=== PATIENT | female | born 1955 | race Caucasian/White ===

== ENCOUNTER 2020-02-13 14:54 | Emergency (ER) | payer OTHER ==
[~2020-02-13] VITALS: Ht 170.2 cm; Wt 86.2 kg
[~2020-02-13 14:54] MED LIST: ACET325 PO; ALBU90OI INH; ASPI325 PO; ASPI81CH PO; ATOR80 PO; Aspir 8181 MG PO; Aspirin EC81 MG PO; BACL20 PO; BASAGLAR K100 UNIT/3 SC; BELSOMRA20 MG PO; BENZ100A PO; BISA10S PR; BUSP10 PO; BUSP15 PO; BUTALB-ACETAMI1 EAC5 PO; Baclofen20 MG PO; CARI350 PO; CENTRUM MULTIV1 EACH; CHOL10002; CLON.2 PO; CVS DISPOSABLE399 ML PR; Cipro500 MG PO; Coq-10100 MG PO; DIPATR PO; DOCU100 PO; DULO30 PO; DULO60 PO; ERGO50000 PO; ESCI20 PO; FLUTICASONE-SA1 EAC2 INH; Flagyl500 MG PO; GABA100 PO; GABA300 PO; GABA800 PO; HYDHCL25 PO; INS70/30PN SC; INSULANPEN SC; Keppra750 MG PO; LEVEMIR FL100 UNIT/1 SC; METH10 PO; METO100ER PO; METO50ER PO; MIDO5 PO; MILN100T PO; Macrobid 100 M100 MG PO; Metoprolol Succ25 MG PO; Milk Of Ma800 MG/5 M PO; NICO21TP TOP; NITR.4SL SL; NYST100P TOP; Norco 5-325 Ta1 EACH PO; Novolog Fl100 UNIT/1 SC; OMEP20ER PO; ONDA4ODT PO; OXYC1TAB11 PO; OXYC5 PO; PARO20 PO; PARO30 PO; POTCHL20ER PO; PRAHYD1AE TOP; PRAV20 PO; PRAVASTATIN SOD10 MG PO; PROC10 PO; PROM25 PO; QUETIAPINE FUM150 MG PO; RANI150 PO; RIZATRIPTAN5 MG PO; SEEBRI NEOHA15.6 MC1 INH; SENN187 PO; SYMBICORT 80-10.2 GM INH; TOPI25 PO; TORSE20 PO; VENL75ER PO; ZOLP10 PO; ZONI100 PO; [UNRECOGNIZED DRUG - OTHER] PO; nuvigil PO
== END 2020-02-13 17:40 | disposition home or self-care (01) ==
LOC: ER 14:54
DX: T14.8XXA Other injury of unspecified body region, initial encounter (principal); M54.2 Cervicalgia; M25.551 Pain in right hip; M25.552 Pain in left hip; M25.562 Pain in left knee; Z88.8 Allergy status to other drugs, medicaments and biological substances; Z91.013 Allergy to seafood; Z79.899 Other long term (current) drug therapy; Z79.4 Long term (current) use of insulin; I10 Essential (primary) hypertension; E78.5 Hyperlipidemia, unspecified; I25.10 Atherosclerotic heart disease of native coronary artery without angina pectoris; J44.9 Chronic obstructive pulmonary disease, unspecified; Z86.73 Personal history of transient ischemic attack (TIA), and cerebral infarction without residual deficits; E11.9 Type 2 diabetes mellitus without complications; F17.200 Nicotine dependence, unspecified, uncomplicated; V87.8XXA Person injured in other specified noncollision transport accidents involving motor vehicle (traffic), initial encounter
CPT/HCPCS: 72040; 72100; 73070; 73562-LT; 73620; 99284-25

== ENCOUNTER → 2020-03-12 | Outpatient (CLI) | payer OTHER ==
[2020-03-12 18:34] LABS: Protein, Urine Quantitative 11.9 mg/dL (0.0-11.9)
[2020-03-12 18:53] LABS: Microalbumin, Urine Quant. <5.000 mg/L (0.000-20.000)
== END | disposition home or self-care (01) ==
LOC: LAB EV 14:00 → LAB SHORT 14:00
PROVIDERS: Internal Medicine Nephrology
DX: N18.3 Chronic kidney disease, stage 3 (moderate) (principal); D63.1 Anemia in chronic kidney disease; D75.1 Secondary polycythemia; N25.81 Secondary hyperparathyroidism of renal origin; E55.9 Vitamin D deficiency, unspecified; E78.00 Pure hypercholesterolemia, unspecified; D51.8 Other vitamin B12 deficiency anemias; D52.8 Other folate deficiency anemias; D50.9 Iron deficiency anemia, unspecified; R76.9 Abnormal immunological finding in serum, unspecified; R94.5 Abnormal results of liver function studies; R94.6 Abnormal results of thyroid function studies
CPT/HCPCS: 81050; 82043; 82570; 84156

== ENCOUNTER 2020-10-24 12:31 | Emergency (ER) | payer OTHER ==
[~2020-10-24] VITALS: Ht 170.2 cm; Wt 65.8 kg
[2020-10-24 14:21] LABS: BASOPHILS ABSOLUTE AUTO 0.04 K/mm3 (0.00-0.23); BASOPHILS PERCENT AUTO 1 % (0-2); EOSINOPHILS PERCENT AUTO 1 % (0-6); Hematocrit 40.2 % (33.0-51.0); Hemoglobin 13.7 g/dL (11.5-16.0); IMMATURE GRAN ABSOLUTE AUTO 0.06 K/mm3 (0.00-0.10); IMMATURE GRAN PERCENT AUTO 1 % (0-1); LYMPHOCYTES ABSOLUTE AUTO 1.89 K/mm3 (0.84-5.20); LYMPHOCYTES PERCENT AUTO 25 % (21-46); MONOCYTES ABSOLUTE AUTO 0.32 K/mm3 (0.16-1.47); MONOCYTES PERCENT AUTO 4 % (4-13); Mean Corpuscular HGB 34.4 pg (26.0-34.0); Mean Corpuscular HGB Conc 34.1 g/dL (31.5-36.5); Mean Corpuscular Volume 101 fL (80-100); Mean Platelet Volume 11.9 fL (9.1-12.4); NEUTROPHILS ABSOLUTE AUTO 5.17 K/mm3 (1.96-9.15); NEUTROPHILS PERCENT AUTO 68 % (41-73); Platelet Count 218 K/mm3 (150-400); RDW Coefficient Variation 12.4 % (11.7-14.2); RDW Standard Deviation 45.7 fL (35.1-46.3); Red Blood Cell Count 3.98 M/mm3 (3.80-5.20); White Blood Cell Count 7.58 K/mm3 (4.00-11.30)
[2020-10-24 14:34] LABS: International Normalized Ratio 0.96; Prothrombin Time Results 10.3 Sec (9.7-11.5)
[2020-10-24 14:52] LABS: Alanine Aminotransfer (ALT/SGP 21 U/L (12-78); Albumin, Blood 3.5 g/dL (3.4-5.0); Albumin/Globulin Ratio 0.8 (0.8-1.8); Alk Phos 120 U/L (50-136); Anion Gap 7 mmol/L (6-16); Aspartate Aminotrans (AST/SGOT 10 U/L (12-37); Bilirubin, Total 0.3 mg/dL (0.1-1.0); Blood Urea Nitrogen 13 mg/dL (8-24); Bun/Creatinine Ratio 14.3 (12.0-20.0); CO2, Blood 21 mmol/L (21-32); Chloride, Blood 106 mmol/L (98-108); Creatinine, Blood 0.91 mg/dL (0.40-1.00); Globulin, Blood 4.6 g/dL (2.2-4.0); Glomerular Filtration Rate >60 (60-); Glucose, Blood 338 mg/dL (70-99); Potassium, Blood 4.3 mmol/L (3.5-5.5); Sodium, Blood 134 mmol/L (136-145); Total Protein, Blood 8.1 g/dL (6.4-8.2)
[2020-10-24] MEDS ORDERED: FLOVENT HFA12 GM INH (16:57)
== END 2020-10-24 19:21 | disposition home or self-care (01) ==
LOC: ER 12:31
PROVIDERS: Physician Assistant
DX: R89.5 Abnormal microbiological findings in specimens from other organs, systems and tissues (principal); I10 Essential (primary) hypertension; E78.5 Hyperlipidemia, unspecified; I25.10 Atherosclerotic heart disease of native coronary artery without angina pectoris; I25.2 Old myocardial infarction; F17.200 Nicotine dependence, unspecified, uncomplicated; Z86.16 Personal history of COVID-19; Z88.5 Allergy status to narcotic agent; Z91.013 Allergy to seafood; Z88.8 Allergy status to other drugs, medicaments and biological substances; Z86.73 Personal history of transient ischemic attack (TIA), and cerebral infarction without residual deficits
CPT/HCPCS: 36415; 71045; 74177; 80053; 83605; 85025; 85610; 87040; 93005; 93010; 96374-59; 99284-25; A9270; J1200; J7030; Q9967

== ENCOUNTER → 2021-07-08 | Outpatient (CLI) | payer OTHER ==
[~2021-07-08] MED LIST changes: +FLOVENT HFA12 GM INH
[2021-07-08 13:39] LABS: Alanine Aminotransfer (ALT/SGP 15 U/L (12-78); Albumin, Blood 3.6 g/dL (3.4-5.0); Albumin/Globulin Ratio 0.7 (0.8-1.8); Alk Phos 123 U/L (50-136); Anion Gap 8 mmol/L (6-16); Aspartate Aminotrans (AST/SGOT 9 U/L (12-37); Bilirubin, Direct <0.1 mg/dL (0.0-0.3); Bilirubin, Indirect Unable to Calculate mg/dL (0.1-0.7); Bilirubin, Total 0.3 mg/dL (0.1-1.0); Blood Urea Nitrogen 10 mg/dL (8-24); Bun/Creatinine Ratio 11.6 (12.0-20.0); CO2, Blood 22 mmol/L (21-32); Calcium, Blood 9.4 mg/dL (8.5-10.1); Chloride, Blood 104 mmol/L (98-108); Cholesterol 285 mg/dL (50-200); Creatinine, Blood 0.86 mg/dL (0.40-1.00); Free Thyroxine 0.83 ng/dL (0.70-1.60); Globulin, Blood 4.9 g/dL (2.2-4.0); Glomerular Filtration Rate >60 (60-); Glucose, Blood 237 mg/dL (70-99); HDL Cholesterol 41 mg/dL (>39); LDL/HDL RATIO 4.4; Low Density Lipoprotein Chol 180 mg/dL (0-110); Phosphorus, Blood 3.1 mg/dL (2.5-4.9); Potassium, Blood 4.5 mmol/L (3.5-5.5); Sodium, Blood 134 mmol/L (136-145); Total Protein, Blood 8.5 g/dL (6.4-8.2); Triglycerides 321 mg/dL (30-160); Very Low Density Lipoprot Chol 64 mg/dL (6-32)
== END | disposition home or self-care (01) ==
LOC: LAB SHORT 11:00 → LAB FUT 07-06 09:05 → EDSTATUS 07-06 09:05
PROVIDERS: Nurse Practitioner Family
DX: I13.0 Hypertensive heart and chronic kidney disease with heart failure and stage 1 through stage 4 chronic kidney disease, or unspecified chronic kidney disease (principal); E11.21 Type 2 diabetes mellitus with diabetic nephropathy; E11.22 Type 2 diabetes mellitus with diabetic chronic kidney disease; N18.4 Chronic kidney disease, stage 4 (severe); E78.5 Hyperlipidemia, unspecified
CPT/HCPCS: 80053; 80061; 82248; 84100; 84439; 84443

== ENCOUNTER → 2021-10-21 | Outpatient (CLI) | payer OTHER | END | disposition home or self-care (01) | LOC: LAB 10:45 → LAB SHORT 10:45 | DX: N89.8 Other specified noninflammatory disorders of vagina (principal) | CPT/HCPCS: 87070; 87205 ==

== ENCOUNTER → 2022-03-29 | Outpatient (CLI) | payer OTHER | END | disposition home or self-care (01) | LOC: LAB SHORT 17:50 → LAB 17:50 | DX: N39.0 Urinary tract infection, site not specified (principal) | CPT/HCPCS: 87077; 87086; 87186 ==

== ENCOUNTER → 2022-05-17 | Outpatient (CLI) | payer OTHER ==
[2022-05-18 10:15] LABS: Candida species (DNA Probe) Negative (NEGATIVE); G. vaginalis (DNA Probe) Negative (NEGATIVE); T. vaginalis (DNA Probe) Positive (NEGATIVE)
[2022-05-19 04:10] LABS: CHLAMYDIA TRACHOMATIS, NAA Negative (Negative)
== END ==
LOC: LAB 14:13 → LAB SHORT 14:13
PROVIDERS: Family Medicine
DX: N76.0 Acute vaginitis (principal)
CPT/HCPCS: 87480; 87491; 87510; 87591; 87660

== ENCOUNTER 2022-06-28 12:56 | Inpatient (IN) | payer OTHER, MEDICARE ==
[~2022-06-28] VITALS: Ht 170.2 cm; Wt 70.7 kg
[2022-06-28 15:05] LABS: BASOPHILS ABSOLUTE AUTO 0.09 K/mm3 (0.00-0.23); BASOPHILS PERCENT AUTO 1 % (0-2); EOSINOPHILS ABSOLUTE AUTO 0.09 K/mm3 (0.00-0.68); EOSINOPHILS PERCENT AUTO 1 % (0-6); Hematocrit 44.9 % (33.0-51.0); Hemoglobin 14.8 g/dL (11.5-16.0); IMMATURE GRAN ABSOLUTE AUTO 0.25 K/mm3 (0.00-0.10); IMMATURE GRAN PERCENT AUTO 2 % (0-1); LYMPHOCYTES ABSOLUTE AUTO 0.47 K/mm3 (0.84-5.20); LYMPHOCYTES PERCENT AUTO 4 % (21-46); MONOCYTES ABSOLUTE AUTO 0.59 K/mm3 (0.16-1.47); MONOCYTES PERCENT AUTO 5 % (4-13); Mean Corpuscular HGB 33.3 pg (26.0-34.0); Mean Corpuscular Volume 101 fL (80-100); Mean Platelet Volume 12.6 fL (9.1-12.4); NEUTROPHILS ABSOLUTE AUTO 9.48 K/mm3 (1.96-9.15); NEUTROPHILS PERCENT AUTO 86 % (41-73); NRBC ABSOLUTE 0.03 K/mm3 (0.00-0.02); NRBC Auto 0.3 /100 WBC (0.0-0.2); Platelet Count 110 K/mm3 (150-400); RDW Coefficient Variation 14.1 % (11.7-14.2); RDW Standard Deviation 52.7 fL (35.1-46.3); Red Blood Cell Count 4.44 M/mm3 (3.80-5.20); White Blood Cell Count 10.97 K/mm3 (4.00-11.30)
[2022-06-28 15:21] LABS: Base Excess Venous -22.1 mmol/L; Bicarbonate Venous 10.1 mmol/L (24.0-30.0); PCO2 Venous 25.7 mmHg (38-42)
[2022-06-28 15:23] LABS: pH Blood Venous 7.09 (7.34-7.37)
[2022-06-28 15:30] LABS: Beta-hydroxybutyrate 13.2 mg/dL (0.2-2.8); CPK Creatine Kinase 155 U/L (26-193); Ethanol (Alcohol), Blood, Med <3 mg/dL; Magnesium, Blood 3.3 mg/dL (1.6-2.4)
[2022-06-28 15:36] LABS: Alanine Aminotransfer (ALT/SGP 82 U/L (12-78); Albumin/Globulin Ratio 0.3 (0.8-1.8); Alk Phos 138 U/L (50-136); Anion Gap 27 mmol/L (6-16); Aspartate Aminotrans (AST/SGOT 164 U/L (12-37); Blood Urea Nitrogen 77 mg/dL (8-24); Bun/Creatinine Ratio 25.6 (12.0-20.0); CO2, Blood 10 mmol/L (21-32); Calcium, Blood 9.5 mg/dL (8.5-10.1); Chloride, Blood 93 mmol/L (98-108); Creatinine, Blood 3.01 mg/dL (0.40-1.00); Globulin, Blood 6.6 g/dL (2.2-4.0); Glomerular Filtration Rate 17 (60-); Glucose, Blood 713 mg/dL (70-99); Potassium, Blood 5.5 mmol/L (3.5-5.5); Sodium, Blood 130 mmol/L (136-145); Total Protein, Blood 8.6 g/dL (6.4-8.2)
[2022-06-28 15:55] LABS: Influenza A, PCR NEGATIVE (NEGATIVE); Influenza B, PCR NEGATIVE (NEGATIVE); Resp Syncytial Virus, PCR NEGATIVE (NEGATIVE); SARS-Cov-2 (COVID-19) PCR, MMC NEGATIVE (NEGATIVE)
[2022-06-28 16:10] LABS: Source, Urine Foley catheter
[2022-06-28 16:14] LABS: Appearance, Urine Cloudy (Clear); Bilirubin, Urine Neg (Neg); Blood, Urine 5+ (Neg); Color, Urine Yellow (P-Yellow); Glucose Qualitative, Urine 4+ (Neg); Ketones, Urine Neg (Neg); Leukocyte Esterase, Urine 2+ (Neg); Nitrite, Urine Neg (Neg); Protein, Urine 3+ (Neg); Specific Gravity, Urine 1.015 (1.003-1.022); Urobilinogen, Urine NORM (Normal)
[2022-06-28 16:30] LABS: U Amphetamine Screen Not Detected; U Barbituate Screen DETECTED; U Benzodiazapine Screen Not Detected; U Buprenorphine Screen Not Detected; U Cannabinoids Screen DETECTED; U Cocaine Screen Not Detected; U Methadone Screen Not Detected; U Methamphetamine Screen Not Detected; U Opiates Screen Not Detected; U Oxycodone Screen Not Detected; U Phencyclidine Screen Not Detected; U Propoxyphene Screen Not Detected
[2022-06-28 16:38] LABS: Bacteria Many /hpf; Renal Epithelial Mod /hpf (0-Rare); Squamous Epithelial Cells Mod /hpf (Few)
[2022-06-28 17:41] LABS: Glucose, Blood 592 mg/dL (70-99)
[2022-06-28 19:44] LABS: Bun/Creatinine Ratio 32.9 (12.0-20.0); Calcium, Blood 8.2 mg/dL (8.5-10.1); Creatinine, Blood 2.52 mg/dL (0.40-1.00); Phosphorus, Blood 2.7 mg/dL (2.5-4.9); Potassium, Blood 4.5 mmol/L (3.5-5.5)
[2022-06-28 20:10] LABS: PCO2 Venous 33.9 mmHg (38-42); pH Blood Venous 7.22 (7.34-7.37)
[2022-06-28 20:11] LABS: Base Excess Venous -13.8 mmol/L; Bicarbonate Venous 14.4 mmol/L (24.0-30.0)
--- NOTE | 2022-06-28 21:07 | NUR ---
PATIENT ARRIVED TO ICU 12 VIA GURNEY. OPENS EYES AND MOANING, NOT FOLLOWING DIRECTIONS, NO MOVEMENT SEEN IN EXTREMITIES, HOLDING BODY AND EXTREMITIES VERY STIFF. PATIENTS EYES ROVING BACK AND FORTH WILL LOOK AT THIS RN WITH NOXIOUS STIMULI, THE BACK TO GOING BACK AND FORTH, PUPILS EQUIL BUT SLUGGISH. EXTREMITIES MOTTLED AND COOL TO TOUCH. ANDERSON TEMP PROBE IN PLACE WITH TEMP 104.1. INSULIN DRIP AT 3.3 UNITS INFUSING. NS WITH KCL INFUSING FROM ED. PATIENT TRANSFERRED TO BED USING SLIDER SHEET AND PLACED ON ICU MONITORS.
[2022-06-28 21:52] LABS: Bicarbonate Venous 12.9 mmol/L (24.0-30.0); PCO2 Venous 31.9 mmHg (38-42); pH Blood Venous 7.19 (7.34-7.37)
--- NOTE | 2022-06-28 22:15 | NUR ---
DOCTOR CARLI GIVEN UPDATE AND INFORMED OF REPEAT LABS. SEE NEW ORDERS.
[2022-06-28 22:20] LABS: Bun/Creatinine Ratio 31.9 (12.0-20.0); Calcium, Blood 8.1 mg/dL (8.5-10.1); Creatinine, Blood 2.54 mg/dL (0.40-1.00); Potassium, Blood 5.4 mmol/L (3.5-5.5)
[2022-06-29 01:00] LABS: Base Excess Venous -17.5 mmol/L; Bicarbonate Venous 12.3 mmol/L (24.0-30.0); PCO2 Venous 28.6 mmHg (38-42); pH Blood Venous 7.18 (7.34-7.37)
--- NOTE | 2022-06-29 01:18 | NUR ---
PATIENT BIOX 89-90% ON RA, ATTEMPT TO DEEP ORAL SUCTION WITH NO RESULTS. PATIENT HAS GOOD GAG. LUNG SOUNDS WITH COARSE WHEEZES UPPER AND DECREASED BASES. OXYGEN PLACED 2L/NC WITH BIOX UP TO 94%
[2022-06-29 02:02] LABS: Bun/Creatinine Ratio 34.1 (12.0-20.0); Calcium, Blood 7.3 mg/dL (8.5-10.1); Creatinine, Blood 2.46 mg/dL (0.40-1.00); Potassium, Blood 5.1 mmol/L (3.5-5.5)
--- NOTE | 2022-06-29 03:00 | NUR ---
PATIENT AWAKE AND YELLING OUT, NOT ANSWERING QUESTIONS OR FOLLOWING DIRECTIONS. APPEARS TO MAKE EYE CONTACT. PATIENT DIAPHORETIC FEVER DOWN TO 101. DIFFICULTY OBTAINING BP DUE TO PATIENT TENSING ARM WITH EACH BP.
[2022-06-29 06:40] LABS: Bun/Creatinine Ratio 34.3 (12.0-20.0); Calcium, Blood 7.9 mg/dL (8.5-10.1); Creatinine, Blood 2.54 mg/dL (0.40-1.00); Magnesium, Blood 2.5 mg/dL (1.6-2.4); Phosphorus, Blood 3.9 mg/dL (2.5-4.9); Potassium, Blood 5.2 mmol/L (3.5-5.5)
--- NOTE | 2022-06-29 07:00 | NUR ---
SUMMARY PATIENT CONTINUES TO BE NONVERBAL, MOANING FREQUENTLY, LOUDER WITH STIMULI. WILL HOLD EYE CONTACT AT TIMES, BUT NOT CONSISTENT. CLOSES MOUTH TIGHT DURING ORAL CARE. ONLY SLIGHT MOVEMENT SEEN IN HANDS. NOT FOLLOWING DIRECTIONS. INSULIN DRIP CONTINUES NOW 3 UNITS/HR. D5 1/2 NS @ 200 CC/HR CONTINUES. PATIENT CONTINUES TO BE MOTTLED WITH COLD EXTREMITIES DESPITE TEMP UP TO 102 AGAIN, VIA ANDERSON TEMP PROBE. FREQUENT ORAL CARE DONE REMOVING BLACK ORAL SECRETIONS OFF TONGUE. GOOD GAG WITH DEEP ORAL SUCTION AFTER MOIST COUGH. PATIENT CONTINUES TO HAVE WHEEZES T/O ORDER OBTAINED FOR UDN TX PER RT PROTOCOL.
[2022-06-29] MEDS ORDERED: MODA200 PO (07:54)
[2022-06-29] MEDS ORDERED: TRAM50 PO (07:55)
[2022-06-29] MEDS ORDERED: GUAI600T33 PO (07:59)
[2022-06-29] MEDS ORDERED: Tessalon200 MG (07:59)
[2022-06-29 09:04] LABS: Hematocrit 33.4 % (33.0-51.0); Hemoglobin 11.2 g/dL (11.5-16.0); Mean Corpuscular HGB 33.7 pg (26.0-34.0); Mean Corpuscular HGB Conc 33.5 g/dL (31.5-36.5); Mean Corpuscular Volume 101 fL (80-100); Mean Platelet Volume 12.2 fL (9.1-12.4); NRBC ABSOLUTE 0.02 K/mm3 (0.00-0.02); NRBC Auto 0.2 /100 WBC (0.0-0.2); Platelet Count 76 K/mm3 (150-400); RDW Coefficient Variation 14.6 % (11.7-14.2); RDW Standard Deviation 54.4 fL (35.1-46.3); Red Blood Cell Count 3.32 M/mm3 (3.80-5.20)
[2022-06-29 09:19] LABS: Vancomycin, Random 28.9 ug/mL
[2022-06-29 10:18] LABS: Magnesium, Blood 2.3 mg/dL (1.6-2.4); Potassium, Blood 4.8 mmol/L (3.5-5.5)
[2022-06-29 10:27] LABS: BAND PERCENT MAN 1 % (0-8); BASOPHILS PERCENT MAN 0 % (0-2); EOSINOPHILS PERCENT MAN 0 % (0-6); LYMPHOCYTES % ATYPICAL MANUAL 1 % (0-0); LYMPHOCYTES ABSOLUTE MAN 1.23 K/mm3 (0.84-5.20); LYMPHOCYTES PERCENT MAN 12 % (21-46); MONOCYTES ABSOLUTE MAN 0.85 K/mm3 (0.16-1.47); MONOCYTES PERCENT MAN 9 % (4-13); NEUTROPHILS ABSOLUTE MAN 7.41 K/mm3 (1.96-9.15); SEG NEUTROPHILS PERCENT MAN 77 % (41-73); TOTAL CELLS COUNTED 100
[2022-06-29 11:16] LABS: PCO2 Arterial 28.4 mmHg (35-45); PO2 Arterial 119 mmHg (80-100); pH Blood Arterial 7.21 (7.35-7.45)
[2022-06-29 12:14] LABS: Bun/Creatinine Ratio 31.9 (12.0-20.0); Calcium, Blood 8.8 mg/dL (8.5-10.1); Creatinine, Blood 2.63 mg/dL (0.40-1.00); Potassium, Blood 5.1 mmol/L (3.5-5.5)
--- NOTE | 2022-06-29 13:58 | NUR ---
0700 ASSUMED CARE: PATIENT IS TACHYPNIC ISN THE 30'S SHE IS MODDLED THIGHS TO TOES. PREVIOUS NURSE STATED HER MODDLING WAS WORSE EARLIER ON HER SHIFT. SHE HAS VERY COOL EXTREMETIES AND TEMP ANDERSON IN PLACE SHOWING A CORE TEMPERATURE OF 102.2 F. SHE IS ON 2L NC WITH A SAO2 OF 93%. SHE IS ON D51/2N AT 200ML HR AND INSULIN DRIP GOING AT 3 UNIT /HR . SHE IS NOT RESPONSIVE TO VERBAL STIMULI OR PAINFUL STIMULI. SHE HAS ROVING EYES BACK AND FORTH AND WILL NOT FOCUS IS ON STAFF UNLESS EYES ARE HELD OPEN AND STAFF IS SPEAKING LOUDLY AT PATIENT BUT SHE DOES NOT HOLD GAZE VERY LONG. PUPILS EQUAL REACTIVE TO LIGHT BUT SLUGGISH AND SIZE IS 5 BILATERALLY. SHE HAS 3 PIV'S LEFT WRIST/ RIGHT LOWER FA AND LEFT BREAST. 0800: PLACED A POWERGLIDE TO PATIENTS RIGHT UPPER ARM. STARTED LEVOPHED AFTERWARD FOR A LOW BP 60/40'S. IT IS GOING INTO LEFT PIV. 0930: PATIENT HAD A RUN OF VTACH PER CHARGE NURSE. 1 AMP OF CALCIUM GLUCONATE GIVEN BY MARCOS COORDINATOR. DR MIRAMONTES PRESENT AT BEDSIDE, ZOLL PLACED TO CHEST/BACK. DR MIRAMONTES AGREED PATIENT UNABLE TO MAINTAIN A SAFE AIRWAY SHE IS VERY COURSE T/O AND SOUNDS VERY WET. SHE INTUBATED THE PATIENT WITH 2 RT'S AT BEDSIDE. PATIENT RECIEVED AN OG / CLAMPED IT. LEVOPHED TITRATED UP FOR LOW BP. 1000: PICC LINE PLACED OVERWIRE FROM POWERGLIDE THAT WAS PLACED EARLIER. CHEST X-RAY TO CONFIRM PICC AND ETT AND OG PLACEMENT. PATIENT NOT RESPONSIVE TO ANY PAINFUL STIMULI TO ANY OF HER 4 EXTREMETIES. LOTS OF THICK CREAMY SECRETIONS FROM ETT AND SAMPLE SENT FOR CULTURES. BLOOD CULTURES X2 CAME BACK POSITIVE FOR GRAM - RODS. DR MIRAMONTES AWARE. GOT CASE MANAGEMENT TO REACH OUT TO "CAREGIVER" LETA. NO NEXT OF KIN AVAILABLE. 1100: INSULIN DRIP UP TO 4 UNIT GLUCOSE INCREASING. D5 1/2 AT 75 /HR AND BICARB DRIP THAT WAS STARTED S/P LAST ABG. ECHO TO BE DONE. WILL CONTINUE CARE.
--- NOTE | 2022-06-29 14:19 | NUR ---
LANDLORD/FRIEND: Patient itubated and unable to speak for herself at this time. Patient's friend/landlord (Eulalia Vinson [phone]) came to unit to visit patient. Eulalia expressed concerns for "Kenny" (roommate/caregiver) making decision's for patient as he has "mental health issues". Eulalia also explained that the patient has no legal next of kin. Eulalia expressed desire to be involved with her care and to be contacted with changes. Ethic's consult placed, palliative care notified.
--- NOTE | 2022-06-29 15:16 | NUR ---
Ethics consult order received and processed. Medical history, present clinical condition, and social matrix reviewed and discussed with palliative care. Concerns have beed expressed regarding the identification of the default proxy decision maker (DM), as the principal is currently incapacitated, and therefore incapable of such a contribution. If after a good luiza effort, blood relatives cannot be located, then per ORS 127.635 (2) (g), any adult friend can function as a substitute DM resource for care escelation, if such a course is deemed medically reasonable, or care de-escelation, if two doctors provide formal attestation that aggressive measures of treatment would be grossly disproportionate, only prolonging, or clinically non-beneficial. As to the fitness requirements of the adult proxy or surrogate, one must be selected who displays a reasonable comprehension of their obligation as a substitute DM, and adequate competency to function in such a supporting role i.e. the proxy must be of sober mind and judgement, committed to acting in the best interests of the principal, and willing to make decisions that align with the known values and wishes of the same. In the event that the preferences or values of the principal are uknown, then the surrogate would be obliged to make decisions that comport with what a reasonable person would do if they were in similar circumstances. If both potential DM's meet this criteria, then the one who co-habitates with the principal should be selected as the DM. Given the reported conflict that exists between the two candidates, and the complexity involved in making a proper choice, Palliative Care RN, Gabriele Greco is actively assessing each for suitability and will document his findings. Thank you for this consult. Gabriele Ceballos ThD, ENRRIQUE
[2022-06-29 15:37] LABS: Anti-Xa UFH, PHA Monitoring <0.10 IU/mL; International Normalized Ratio 1.26
--- NOTE | 2022-06-29 17:12 | NUR ---
Pt resting in bed and is intubated. Spoke with Primary RN Rahat and discussed case. Pt may benefit from determing decision maker. Spoke with Gabriele Ceballos from Ethics and discussed case. Please see Gabriele's note. Called and spoke with Pt's friend Kenny. Kenny reports knowing Pt for approximately 9 months. He reports meeting Pt after being hired by Pt's friend Eulalia to work on structure Pt was living in. Kenny reports being Pt's caregiver assisting with all of her ADLs. He reports Pt requires assistance with bathing, dressing, ambulation, and is incontinent of bowel and bladder. Difficult to have therapeutic conversation with Kenny as he continues conversatioin with no oppurtunity to respond. He states that Pt had children in the past but shortly after due to father of children having been exposed to agent orange. He reports trying to reach out to people that have a longer history with Pt as he does not know her wishes or medical treatment goals. Called and spoke with Pt's friend Eulalia. She reports knowing Pt for about 3-4 years. Eulalia reports working for the state as a "chore licensed practical nurse clinic nurse", meaning the state pays her to assist with cleaning Pt's home that are in "hording situations". Eulalia reports allowing Pt to move into one of her structures on her property. She does not charge Pt rent. Eulalia reports Pt has mentioned having a living daughter but is not aware of name or contact. Eulalia reports having a conversation with Pt in the past regarding her wishes for CPR and her wishes are DNR. Eulalia also reports having concerns with Kenny's treatment towards Pt and called APS today. Eulalia expresses appreciation of conversation and reports no other concerns at this time. Also Eulalia mentioned that she hire Kenny to assist with structures on the property after he [place] his place at the mission. Spoke with Gabriele Ceballos from Ethics and discussed case. Relayed conversations that took place with both friends. Eulalia appears to have more knowledge of Pt's wishes and would be most appropriate person to make decisions for Pt. Called admitting and had Eulalia's contact information added to Pt's face sheet. Spoke with Primary RN Rahat and relayed Pt's code status wishes. Palliative Care will remain available.
--- NOTE | 2022-06-29 17:54 | NUR ---
0936: INTUBATION NOTE: 0936: CALCIUM CHLORIDE IVP 0940: DECISION TO INTUBATE PER TACHYPNEA, COURSE WET LUNGS AND NON RESPONSIVE 0944: ETOMIDATE 20MG PUSH 0946: INTUBATED 24 AT GUMS POSITIVE COLOR CHANGE 0950: SPUTUM SAMPLE SENT 0955: OG PLACED AND CHEST X-RAY DONE TO CONFIRM PLACEMENT
--- NOTE | 2022-06-29 17:58 | NUR ---
1700: END OF SHIFT NOTE PATIENT IS INTUBATED AND SEDATED WITH PROPOFOL AT 20MCG. SHE IS ON 1 MCG OF LEVOPHED map DROPPED BELOW 65 WHEN OFF LEVOPHED. PATIENT HAS A FEVER OF 104.2. TYLENOL WAS GIVEN PER RECTUM AND ICE PACKS PLACED TO GROIN AND ARMPIT, NO BLANKETS ON PT ALL DAY. PT HAS NEVER BEEN PUT IN RESTRAINTS DUE TO SHE IS NOT MOVING ANY EXTREMETIES. ANDERSON IN PLACE WITH SEDEMENT IN IT. LEGS MOTTLED BUT SLIGHTLY BETTER STILL COOL TO TOUCH HOWEVER THIS EVENING. FRIEND GENO RICHEY CAME IN AND SAW PT AND SPOKE WITH PRIMARY RN AND PALLIATIVE CARE CYNTHIA BAUGH. CAREGIVER FRIEND SPOKE WITH CYNTHIA BAUGH WELL. HE HAS NOT BEEN IN TO SEE PT OF YET. IT WAS AGREED UPON BY CYNTHIA BAUGH AND GENO RICHEY THAT THE PATIENT WOULD NOT WANT CPR. TOLD DR MIRAMONTES OF CONVERSATION CYNTHIA BAUGH HAD. 1809: LEVOPHED DOWN TO 0.5MCG AND INSULIN DRIP ON STANDBY. WILL GIVE REPORT TO NEXT SHIFT
[2022-06-29 19:08] LABS: Bun/Creatinine Ratio 29.4 (12.0-20.0); Calcium, Blood 7.8 mg/dL (8.5-10.1); Creatinine, Blood 2.82 mg/dL (0.40-1.00); Potassium, Blood 4.7 mmol/L (3.5-5.5)
--- NOTE | 2022-06-29 19:09 | NUR ---
1900: PT'S FEVER UP TO 104.4. COOLING BLANKET PLACED ON PT. ICE BATH ALSO GIVEN. INSULIN GTT OFF DUE TO GLUCOSE DOWN TO 86. PATIENT LEVOPHED DOWN TO 0.5MCG BP 100/72 MAP 81
--- NOTE | 2022-06-29 20:00 | NUR ---
PATIENT INTUBATED SEDATED WITH PROPOFOL 20 MCG. RESP 30'S UP TO MID 40'S WITH STIMULI. NO MOVEMENT SEEN IN EXTREMITIES. VENT AC VC 14, TV 350, PEEP 5, FIO2 40% BLOODY ORAL SECRETIONS WITH ORAL CARE. GLUCOSE 85, CLARIFIED WITH DOCTOR FE AND D5 1/2 NS @ 75 CC/HR RESTARTED. INSULIN DRIP REMAINS OFF, AND CBG Q6 WITH SLIDING SCALE STARTED. LEVOPHED 0.5 MCG CONTINUES FOR HYPOTENSION. OG IN PLACE AND CLAMPED. COOLING BLANKET REMAINS IN PLACE DUE TO TEMP 104 VIA ANDERSON TEMP PROBE. ICE PACKS REMOVED DUE TO BLANCHING OF THE SKIN. EXTREMITIES CONTINUE TO BE COLD AND MOTTLED.
--- NOTE | 2022-06-29 23:13 | NUR ---
PATIENT RESP UP TO 40'S WITH STIMULI, CLOSING MOUTH TIGHT WITH ORAL SUCTIONING, CONTINUE TO GET BLOODY ORAL SECRETIONS. COOLING BLANKET REMAINS IN PLACE AND TYLENOL GIVEN VIA OG TUBE FOR TEMP 102.4.
[2022-06-29 23:23] LABS: Vancomycin, Random 22.4 ug/mL
[2022-06-30 00:10] LABS: Bun/Creatinine Ratio 30.1 (12.0-20.0); Calcium, Blood 7.8 mg/dL (8.5-10.1); Creatinine, Blood 2.89 mg/dL (0.40-1.00); Potassium, Blood 4.9 mmol/L (3.5-5.5)
--- NOTE | 2022-06-30 00:45 | NUR ---
PATIENT CHEWING ON ETT, OCCASIONAL SPONTANEOUS COUGH. CONTINUES TO HAVE NO MOVEMENT IN EXTREMITIES. PROPOFOL INCREASED TO 25 MCG
--- NOTE | 2022-06-30 03:30 | NUR ---
DURING BED BATH PATIENT GRIMACING AND COUGHING, CONTINUES TO HAVE NO MOVEMENT IN ARM OR LEGS, SLIGHT MOVEMENT SEEN IN SHOULDERS. INCONT OF DARK BROWN LOOSE BM.
[2022-06-30 05:21] LABS: BASOPHILS ABSOLUTE AUTO 0.03 K/mm3 (0.00-0.23); BASOPHILS PERCENT AUTO 0 % (0-2); Hematocrit 27.9 % (33.0-51.0); Hemoglobin 9.6 g/dL (11.5-16.0); Mean Corpuscular HGB 33.7 pg (26.0-34.0); Mean Corpuscular HGB Conc 34.4 g/dL (31.5-36.5); Mean Corpuscular Volume 98 fL (80-100); Platelet Count 69 K/mm3 (150-400); RDW Coefficient Variation 14.8 % (11.7-14.2); RDW Standard Deviation 53.7 fL (35.1-46.3); Red Blood Cell Count 2.85 M/mm3 (3.80-5.20); White Blood Cell Count 8.18 K/mm3 (4.00-11.30)
[2022-06-30 05:26] LABS: EOSINOPHILS ABSOLUTE AUTO 0.03 K/mm3 (0.00-0.68); EOSINOPHILS PERCENT AUTO 0 % (0-6); IMMATURE GRAN ABSOLUTE AUTO 0.14 K/mm3 (0.00-0.10); IMMATURE GRAN PERCENT AUTO 2 % (0-1); LYMPHOCYTES ABSOLUTE AUTO 1.18 K/mm3 (0.84-5.20); LYMPHOCYTES PERCENT AUTO 14 % (21-46); MONOCYTES ABSOLUTE AUTO 0.18 K/mm3 (0.16-1.47); MONOCYTES PERCENT AUTO 2 % (4-13); Mean Platelet Volume 13.6 fL (9.1-12.4); NEUTROPHILS ABSOLUTE AUTO 6.62 K/mm3 (1.96-9.15); NEUTROPHILS PERCENT AUTO 81 % (41-73)
[2022-06-30 05:49] LABS: Bun/Creatinine Ratio 30.1 (12.0-20.0); Calcium, Blood 7.5 mg/dL (8.5-10.1); Creatinine, Blood 2.86 mg/dL (0.40-1.00); Phosphorus, Blood 3.1 mg/dL (2.5-4.9); Potassium, Blood 3.8 mmol/L (3.5-5.5)
--- NOTE | 2022-06-30 05:53 | NUR ---
HEART RATE UP TO 150'S SUCTIONED WITH SMALL COUGH, AND ONLY SLIGHT GAG WITH ORAL SUCTION. REPOSITIONED HIGH TO LEFT SIDE AND PATIENT CONVERTED BACK TO RATE 90'S. BP 96/73 CONTINUES TO HAVE NO MOVEMENT TO EXTREMITIES. PROPOFOL AND LEVOPHED CONTINUE.
--- NOTE | 2022-06-30 07:00 | NUR ---
SUMMARY PATIENT REMAINS INTUBATED AND SEDATED. PATIENT STACKING HER BREATH AND GRIMACING THIS MORNING. MONITOR SHOWING SHORT RUN OF V-TACH AND PATIENT IN AND OUT OF SVT. PROPOFOL TITRATED UP TO 40 MCG AND FENTANYL IV GIVEN TO HELP PATIENT RELAX. LEVOPHED TITRATED TO 5 MCG DUE TO CONTINUED HYPOTENSION. TEMP 100.0 TYLENOL GIVEN PER OG TUBE TWICE DURING THE NIGHT. ETT IN PLACE WITH VENT AC VC 14, TV 350, PEEP 5 ,FIO2 40% PATIENT HAVING COARSE WHEEZES T/O NIGHT WITH SCANT AMT OF SECRETIONS SUCTIONED. SMALL AMT OF BLOODY ORAL SECRETIONS AT TIMES WITH ORAL CARE.
--- NOTE | 2022-06-30 07:15 | NUR ---
Assumed care of pt at 0700. Report received from MILAGRO Peralta. Pt sedated with propofol at 40 mcg/kg/min. Levophed at 5 mcg/min for blood pressure support. Pt on ventilator via 7.5 cm ETT, 24 cm at gums. Vent settings ACVC 14/350/5/30%. SpO2 90% or greater. SR per monitor with rate in 90s. Having brief runs of narrow QRS tachycardia that resolve without additional intervention.
--- NOTE | 2022-06-30 10:56 | NUR ---
Pt resting in bed with eyes closed and is intubated. Spoke with Primary RN Joann and reviewed plan of care. Palliative Care will remain available.
--- NOTE | 2022-06-30 14:00 | NUR ---
Cooling blanket on patient to help with hyperthermia. Two blankets used with one beneath patient.
[2022-06-30 14:28] LABS: Vancomycin, Random 19.1 ug/mL
--- NOTE | 2022-06-30 16:05 | NUR ---
Patient's HR increased back into 180s and 190s. Discussed with Dr Muro. Provider orders 100 mg amiodarone and 0.5 digoxin if high HR was refractory to amiodarone.
--- NOTE | 2022-06-30 16:37 | NUR ---
While waiting for amiodarone, HR increased to 210-220. Notified Dr Muro. He and Dr Greenfield at bedside. 6 mg and then 12 mg adenosine to assess rhythm. 5 mg metoprolol IV and then 2 G mag. This helped patient convert back to sinus rhtyhm. Now hypotensive. Levophed increased to 30 mcg/min.
--- NOTE | 2022-06-30 16:50 | NUR ---
Received call from mechanical unit repairer Emily reporting Pt appears to be declining. Phone call to healthcare primary care sales representative may be beneficial. Pt's friend/healthcare primary care sales representative Eulalia has already arrived to the hospital. Eulalia is updated on Pt's condition and prognosis. Therapeutic listening and questions answered. Spoke with Manager Category and discussed case. Spoke with Gabriele Ceballos and discussed case. Gabriele confirms if de-escalation of care is recommended, 2 doctors will need to confirm this as appropriate measures. Palliative Care will remain available
[2022-06-30 17:52] LABS: Base Excess Venous -16.7 mmol/L; Bicarbonate Venous 11.6 mmol/L (24.0-30.0); PCO2 Venous 54.8 mmHg (38-42)
[2022-06-30 17:53] LABS: pH Blood Venous 7.02 (7.34-7.37)
--- NOTE | 2022-06-30 18:42 | NUR ---
SUMMARY Neuro: Sedation off. No cough, no gag. At most recent assessment, pupils 5 mm and not responsive to light. Provider aware. Febrile. Temperature refracotry to tylenol and external cooling measures. Musc: Total care for all ADLs. Sporadic movement BUE and BLE. Resp: 7.5 cm ETT, 24 cm at gums. Vent settings ACVC 14/350/5/30%. Actual RR 28-32. Lungs have expiratory wheeze in all [place]. No sputum suctioned from ETT. Card: Had episode of narrow QRS tachycardia that progressed to wide QRS tachycardia. Treated with ICU doctors at bedside. Pt converted back to sinus rhythm. Current vasopressor requirements levophed 30 mcg/min, neosynephrine 300 mcg/min, vasopressin 0.04 units/minute. Gave patient bicarb per orders, pt started to experience ectopy. Provider aware. 1 amp calcium carbonate given. GI: Clamped OG tube. TF not started due to severe hemodynamic instability and profound hypoperfusion. : Cloudy urine drained from ramirez. Skin: No changes to intial assessment. Psychosocial: Decision makerEulalia given update by this RN and palliative care.
--- NOTE | 2022-06-30 19:15 | NUR ---
ASSUMED CARE OF PT @1900 FROM VINCENT HUMPHREY. PT INTUBATED, AC VC 14/350/5/100%, RR 20'S. CONTINUOUS CARDIAC MONITORING. HR 110-120'2, SBP 60'S, MAP <65. PICC MARIANN INFUSING, IV LW INFUSING. VASO 0.04, LEVOPHED 30MCG/MIN, ZARI 300MCG/MIN, AMIODARONE 0.5MG/MIN, ALBUMIN 100MLS/HR, SODIUM BICARB 75MLS/HR. ANDERSON CATH DRAINING TO GRAVITY.
--- NOTE | 2022-06-30 20:00 | NUR ---
PHYSICIAN UPDATE: CALLED DR. WHITING RE: SBP AND MAP, MAXED OUT ON LEVOPHED, ZARI, AND VASO. DR. WHITING DOES NOT WANT TO ADD EPI DUE TO HR. NOT ESCALATING CARE AT THIS POINT.
--- NOTE | 2022-06-30 20:10 | NUR ---
PAVAN W/DECISION MAKER GENO, NOTIFIED OF PT PASSING. GENO IS UNSURE OF HER WISHES AND DOES NOT HAVE PREFERENCE OF HOMES. GENO WOULD LIKE HER BLANKET SENT WITH HER TO THE HOME. NO OTHER PERSONAL BELONGINGS IN THE ROOM. [facility] WILL BE CONTACTING HER IN THE AM.
== END 2022-06-30 20:04 | DRG 637 ==
LOC: ER 12:56 → ICUW 18:27 → ERHOLD 18:27 → ICUW 21:06
PROVIDERS: Family Medicine; Internal Medicine; Internal Medicine Critical Care Medicine; Student in an Organized Health Care Education/Training Program; ADMIT Student in an Organized Health Care Education/Training Program
PROC: 3E03329 Introduction of Other Anti-infective into Peripheral Vein, Percutaneous Approach (ICD-10-PCS; principal; 2022-06-29)
PROC: 3E033XZ Introduction of Vasopressor into Peripheral Vein, Percutaneous Approach (ICD-10-PCS; 2022-06-29)
PROC: 0BH18EZ Insertion of Endotracheal Airway into Trachea, Via Natural or Artificial Opening Endoscopic (ICD-10-PCS; 2022-06-29)
PROC: 5A1935Z Respiratory Ventilation, Less than 24 Consecutive Hours (ICD-10-PCS; 2022-06-29)
PROC: 02H633Z Insertion of Infusion Device into Right Atrium, Percutaneous Approach (ICD-10-PCS; 2022-06-29)
DX: E11.11 Type 2 diabetes mellitus with ketoacidosis with coma (principal); A41.51 Sepsis due to Escherichia coli [E. coli]; I21.4 Non-ST elevation (NSTEMI) myocardial infarction; R65.21 Severe sepsis with septic shock; J69.0 Pneumonitis due to inhalation of food and vomit; G92.8 Other toxic encephalopathy; J96.01 Acute respiratory failure with hypoxia; I69.351 Hemiplegia and hemiparesis following cerebral infarction affecting right dominant side; N17.9 Acute kidney failure, unspecified; N39.0 Urinary tract infection, site not specified; Z51.5 Encounter for palliative care; Z66 Do not resuscitate; J43.9 Emphysema, unspecified; E78.5 Hyperlipidemia, unspecified; Z20.822 Contact with and (suspected) exposure to COVID-19; I25.10 Atherosclerotic heart disease of native coronary artery without angina pectoris; F43.10 Post-traumatic stress disorder, unspecified; F32.A Depression, unspecified; I12.9 Hypertensive chronic kidney disease with stage 1 through stage 4 chronic kidney disease, or unspecified chronic kidney disease; N18.9 Chronic kidney disease, unspecified; D47.2 Monoclonal gammopathy; D69.59 Other secondary thrombocytopenia; F17.210 Nicotine dependence, cigarettes, uncomplicated; G89.4 Chronic pain syndrome; M79.7 Fibromyalgia; G47.00 Insomnia, unspecified; H40.9 Unspecified glaucoma; E03.9 Hypothyroidism, unspecified; J84.10 Pulmonary fibrosis, unspecified; K21.9 Gastro-esophageal reflux disease without esophagitis; Z90.710 Acquired absence of both cervix and uterus; Z91.013 Allergy to seafood; Z88.8 Allergy status to other drugs, medicaments and biological substances; Z79.4 Long term (current) use of insulin; Z79.899 Other long term (current) drug therapy
CPT/HCPCS: 0241U; 31500; 31720; 36415; 36569; 36600; 51702; 71045; 76705; 80048; 80053; 80202; 81001; 82010; 82550; 82803; 82947; 83036; 83605; 83735; 84100; 84132; 84145; 84443; 84484; 85025; 85520; 85610; 85730; 87040; 87070; 87077; 87086; 87186; 87205; 93005; 93010; 94002; 94003; 94640; 94664; 94762; 96361-59; 96365-59; 96366-59; 96368; 96375-59; 99285-25; A9270; C1751; C8929; G0480; J0153; J0282; J0456; J0692; J1644; J1815; J2370; J2543; J2704; J3010; J3370; J3475; J3480; J7030; J7040; J7042; J7050; J7060; J7070; J7120; P9047; Q9957